=== PATIENT | female | born 1945 | race Caucasian/White ===

== ENCOUNTER 2019-10-15 14:59 | Emergency (ER) | payer OTHER, BC ==
[~2019-10-15] VITALS: Ht 154.9 cm; Wt 86.2 kg
[2019-10-15 15:10] VITALS: Ht 154.9 cm; Wt 86.2 kg
[2019-10-15 15:46] LABS: BASOPHIL % 0.2 % (0-2); PLATELET COUNT 137 x10^3mcL (130-400); RED CELL DISTRIBUTION WIDTH 14.7 % (11.5-14.5)
[2019-10-15 18:45] VITALS: BP 183/77
== END 2019-10-15 18:45 | disposition home or self-care (01) ==
LOC: ED 14:59
PROVIDERS: Emergency Medicine
DX: R04.0 Epistaxis (principal); I10 Essential (primary) hypertension; E11.9 Type 2 diabetes mellitus without complications; I48.91 Unspecified atrial fibrillation
CPT/HCPCS: 36415

== ENCOUNTER 2019-10-17 13:12 | Emergency (ER) | payer OTHER, BC ==
[~2019-10-17] VITALS: Ht 154.9 cm; Wt 83.5 kg
[2019-10-17 13:36] VITALS: BP 129/43; Ht 154.9 cm; Wt 83.5 kg
== END 2019-10-17 14:50 | disposition home or self-care (01) ==
LOC: ED 13:12
DX: R04.0 Epistaxis (principal); I10 Essential (primary) hypertension; E11.9 Type 2 diabetes mellitus without complications; I48.91 Unspecified atrial fibrillation; Z95.0 Presence of cardiac pacemaker